=== PATIENT | male | born 1965 | race Caucasian/White ===

== ENCOUNTER 2022-08-28 07:21 | Outpatient (CLI) | payer OTHER ==
[~2022-08-28 07:21] MED LIST: NABUMETONE500 MG PO; PERCOCET 5/3251 TAB PO
== END 2022-08-28 07:26 | disposition home or self-care (01) ==
LOC: NUCLEAR 07:21
PROVIDERS: ATTEND General Practice
DX: E11.621 Type 2 diabetes mellitus with foot ulcer (principal)
CPT/HCPCS: 78315; A9503